=== PATIENT | female | born 1965 | race Caucasian/White ===

== ENCOUNTER 2017-03-10 09:07 | Observation (INO) | payer OTHER ==
[2017-03-10 10:04] LABS: #Basophils 0.1 thou/uL (0.0-0.2); #Eosinphils 0.2 thou/uL (0.0-0.7); #Lymphocytes 3.5 thou/uL (1.20-3.40); #Monocytes 0.8 thou/uL (0.11-0.59); #Neutrophils 5.8 thou/uL (1.40-6.50); %Basophils 0.7 % (0.0-1.0); %Eosinophils 1.8 % (0.0-10.0); %Lymphocytes 34.1 % (21.0-51.0); %Monocytes 7.8 % (0.0-10.0); Hematocrit 47.3 % (36.0-47.0); Mean Platelet Volume 6.3 fL (7.4-10.4); White Blood Cell (WBC) Count 10.4 thou/uL (4.8-10.8)
--- NOTE | 2017-03-10 10:22 | RAD ---
PORTABLE CHEST ONE VIEW: Date: 03-10-17 Time: 10:07 a.m. History: Abdominal pain. FINDINGS: The heart size is normal. The lungs are expanded without focal areas of consolidation, pneumothorax, or pleural effusions. IMPRESSION: No evidence of acute intracranial process. POS: OFF
[2017-03-10 10:30] LABS: Troponin I Less than 0.010 ng/mL (< 0.028)
[2017-03-10] MEDS ORDERED: Ondansetron HCl/PF 4 MG/2 ML Vial ONE (10:38)
[2017-03-10 11:23] LABS: ALT (SGPT) 24 U/L (8-55); AST (SGOT) 18 U/L (5-34); Alkaline Phosphatase 90 U/L (40-150); Anion Gap 17 mmol/L (10-20); BUN (Urea Nitrogen) 11 mg/dL (9.8-20.1); Bilirubin, Total 0.3 mg/dL (0.2-1.2); CK (CPK) 90 U/L (29-168); Calc. Creatinine Clearance 0 mL/min (70-130); Calcium 9.5 mg/dL (7.8-10.44); Carbon Dioxide 23 mmol/L (22-29); Chloride 100 mmol/L (98-107); Estimated GFR-MDRD 76; Protein, Total 7.8 g/dL (6.0-8.3)
[2017-03-10] MEDS ORDERED: Acetaminophen 500 MG TAB ONE (11:23)
[2017-03-10] MEDS ORDERED: Mag-Al 1200 mg/1200 mg/30 ML UDCUP ONE (11:48)
[2017-03-10] MEDS ORDERED: Lidocaine Viscous Sol 2% 15 ml UD Cup ONE (11:48)
--- NOTE | 2017-03-10 12:09 | CT ---
CT ABDOMEN AND PELVIS WITHOUT IV CONTRAST: INDICATIONS: Left lower quadrant abdominal pain and left-sided flank pain. COMPARISON: Prior CT evaluation dated 03/07/2010. FINDINGS: There is severe fatty infiltration of the liver. There is a calcified granuloma in the right lower lobe. The unopacified pancreas and spleen are normal appearing. The right adrenal gland normal appearing. The left adrenal adenoma, measuring 2.6 cm, is stable to the comparison. No renal or ureteral matt culus is evident. No hydronephrosis is evident. The bladder, rectum, and perirectal soft tissues are unremarkable. There is a mild amount of retained stool within the colon. There is a fat-containing umbilical hernia. The appendix is not definitely visualized and may be haley rgically absent. The uterus is not visualized and may be surgically absent. The left adnexa is not visualized and may be surgically absent. The right adnexa is likely present on axial image 63, dayday suring 2.4 cm. The rectum and perirectal soft tissues are unremarkable. There is scattered degener ative and osteoarthritic change. IMPRESSION: 1. No renal or ureteral calculus demonstrated. 2. No hydronephrosis is seen. 3. Stable left adrenal adenoma. 4. Fatty infiltration of the liver. 5. Nonvisualization of the appendix and uterus, most consistent with prior surgical removal. 6. Right adnexa appears within normal limits. Left adnexa is not well seen and may be surgically a bsent as well. POS: [facility]
[2017-03-10 12:15] LABS: Bilirubin Negative (Negative); Blood, Urine Negative (Negative); Glucose, Urine (Dipstick) Negative (Negative); Ketone, Urine Negative (Negative); Nitrite Negative (Negative); Protein, Urine (Dipstick) Negative (Neg-Trace); Urobilinogen 0.2 mg/dL (0.2-1.0)
[2017-03-10 13:14] LABS: Troponin I Less than 0.010 ng/mL (< 0.028)
[2017-03-10] MEDS ORDERED: Acetaminophen 325 MG TAB PO PRN (13:45)
[2017-03-10] MEDS ORDERED: Ondansetron HCl/PF 4 MG/2 ML Vial IVP PRN (13:45)
[2017-03-10] MEDS ORDERED: Ondansetron ODT 4 MG TAB PO PRN (13:45)
[2017-03-10 13:47] VITALS: BMI 54.5
[2017-03-10] MEDS ORDERED: Nitroglycerin 0.4 MG TAB (25 Tab Bottle) PO PRN (14:53)
[2017-03-10 17:03] LABS: Troponin I 0.013 ng/mL (< 0.028)
[2017-03-10] MEDS ORDERED: HumaLOG 300 UNITS/3 ML VIAL SC PRN (17:19)
[2017-03-10] MEDS ORDERED: Dextrose 50% Abboject 50 ML SYRINGE SLOW IVP PRN (17:19)
[2017-03-10] MEDS ORDERED: Dextrose 5% in Water 1,000 ML IV PRN (17:19)
[2017-03-10] MEDS: Hydroxychloroquine Sulfate 200 MG TAB PO SCH (20:40)
[2017-03-10] MEDS ORDERED: Insulin NPH/Reg Insulin Hm 300 UNITS/3 ML VIAL SC SCH (21:00)
[2017-03-10] MEDS ORDERED: Nicotine 21 MG PATCH TD SCH (21:00)
[2017-03-11 04:53] LABS: #Basophils 0.1 thou/uL (0.0-0.2); #Eosinphils 0.2 thou/uL (0.0-0.7); #Lymphocytes 3.5 thou/uL (1.20-3.40); #Monocytes 0.8 thou/uL (0.11-0.59); #Neutrophils 5.3 thou/uL (1.40-6.50); %Basophils 0.8 % (0.0-1.0); %Eosinophils 1.8 % (0.0-10.0); %Lymphocytes 35.7 % (21.0-51.0); %Monocytes 7.9 % (0.0-10.0); Hematocrit 42.9 % (36.0-47.0); Mean Platelet Volume 6.5 fL (7.4-10.4); Red Blood Cell (RBC) Count 4.52 mill/uL (4.20-5.40); White Blood Cell (WBC) Count 9.8 thou/uL (4.8-10.8)
[2017-03-11 05:19] LABS: ALT (SGPT) 22 U/L (8-55); AST (SGOT) 20 U/L (5-34); Alkaline Phosphatase 80 U/L (40-150); Anion Gap 12 mmol/L (10-20); BUN (Urea Nitrogen) 15 mg/dL (9.8-20.1); Bilirubin, Total 0.3 mg/dL (0.2-1.2); Calc. Creatinine Clearance 175 mL/min (70-130); Calcium 8.9 mg/dL (7.8-10.44); Carbon Dioxide 28 mmol/L (22-29); Chloride 102 mmol/L (98-107); Estimated GFR-MDRD 78; Globulin 3.8 g/dL (2.4-3.5); Lipase 57 U/L (8-78); Protein, Total 7.2 g/dL (6.0-8.3)
[2017-03-11] MEDS ORDERED: Levothyroxine Sodium 100 MCG TAB PO SCH (06:00)
--- NOTE | 2017-03-11 06:21 | HP-2 ---
DATE OF ADMISSION: 03/10/2017 ADMITTING ATTENDING: Dr. Dina Espitia. PRIMARY CARE PHYSICIAN: Dr. Dina Espitia. RESIDENT: Dr. Chriss Garcia. CHIEF COMPLAINT: Left upper quadrant abdominal pain. HISTORY OF PRESENT ILLNESS: A 51-year-old female with history of diabetes, hypertension, rheumatoid arthritis, Sjogren's syndrome, fibromyalgia, obstructive sleep apnea, hyperlipidemia, hypothyroidism, and depression presents with 1 day of worsening left upper quadrant pain. Pain had intermittently stabbing and aching quality in the left upper quadrant. Patient became diaphoretic when pain was at worst. The worst pain was 6/10, was not associated with shortness of breath. Patient was evaluated and overall was not well-appearing in the clinic and sent to the emergency department for evaluation of acute abdominal pain versus atypical presentation of acute coronary syndrome. Patient said pain radiated to her left shoulder, and she was positive for nausea. Negative for vomiting. Patient denied any diarrhea or stool changes. It felt like an episode of pancreatitis that patient had in the past. Patient had been started on methotrexate somewhat recently, but stopped it 2 weeks ago because she started to have more minor episodes of a similar pain as described above. Stopping the methotrexate did not help with that pain and today's event was the worst episode of her pain. In the ER, she was given a GI cocktail, which had no significant effect, Zofran, 1 liter of normal saline, Tylenol, and aspirin. PAST MEDICAL HISTORY: No previous myocardial infarction. She did have an angiogram 8 years ago that was normal. Other past medical problems include: 1. Fibromyalgia. 2. Rheumatoid arthritis. 3. Obstructive sleep apnea. 4. Asthma. 5. Sjogren's syndrome. 6. Hyperlipidemia. 7. Hypothyroidism. 8. Hypoparathyroidism. 9. Anxiety. 10. Diabetes mellitus. 11. Depression. 12. Essential hypertension. ALLERGIES: 1. IODINE. 2. MORPHINE. 3. DEPO-PROVERA. 4. CIPROFLOXICIN (mild). 5. CODEINE (mild). 6. PENICILLIN (mild). 7. SILVADENE (mild). 8. SULFA (mild). MEDICATIONS: 1. Albuterol inhaler. 2. Celexa 40 mg daily. 3. Synthroid 125 mcg 2 tabs daily. 4. Calcium 600 plus D3. 5. Fioricet 1 tab every 6 hours for headaches. 6. NovoLog inject 23 units subcutaneous at each meal. 7. Vitamin D3 of 2000 units. 8. Plaquenil 200 mg tabs. 9. Losartan 100 mg daily. 10. Levemir 45 units subcutaneous at bedtime. FAMILY HISTORY: Coronary artery disease, father; type 2 diabetes, mother; hypertension, father and mother; coronary heart disease, father; son, ADHD. PAST SURGICAL HISTORY: 1. Appendectomy, 1975. 2. Cholecystectomy, 1983. 3. Hysterectomy, 2009 with LSO. 4. Tubal ligation. 5. Coloanal anastomosis in infancy. 6. x3. 7. Right subtotal thyroidectomy in 2003. 8. 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 9. Radioactive iodine in 2013. SOCIAL HISTORY: Patient is a half pack a day smoker for a total of approximately 15-pack years. Patient denies alcohol and recreational drugs. 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 REVIEW OF SYSTEMS: General: Negative for fever and chills, weight, or appetite changes. Eyes: Negative for vision changes. ENT: Negative for nasal congestion or rhinorrhea. Respiratory: Negative for cough or shortness of breath. Cardiovascular: Negative for chest pain, but positive for shoulder pain. Negative for palpitations. GI: Positive for abdominal pain and nausea. Negative for vomiting, diarrhea, or GI bleeding. : Negative for incontinence or dysuria. Skin: Negative for rashes. Musculoskeletal: Negative for pain or tenderness. Neurologic: Negative for weakness or numbness. Psychiatric: Negative for anxiety or depression. PHYSICAL EXAMINATION: VITAL SIGNS: Blood pressure 146/95, pulse 85, respiratory rate 16, T-max 97.5, pulse ox 95% on room air. GENERAL: Patient is alert and oriented x4, in no acute distress, obese, and appropriately interactive. HEENT: Eyes, PERRLA, EOMI. Conjunctivae within normal limits. Nasal mucosa and oropharynx within normal limits. NECK: Supple without lymphadenopathy. CARDIOVASCULAR: Regular rate and rhythm without murmurs or gallops. Radial pulses 2+, pedal pulses 2+. RESPIRATORY: Normal effort without retractions. Clear to auscultation bilaterally. SKIN: Warm and dry without cyanosis or lesions. ABDOMEN: Soft, but tender to palpation in the left upper quadrant also the right upper quadrant. No rebound tenderness or guarding, also tender in the lower rib section of the left chest. No mass or distention. EXTREMITIES: No clubbing, cyanosis, or edema. MUSCULOSKELETAL: Tone and structure within normal limits. NEUROLOGICAL: No focal deficits. LABORATORY DATA: White blood cell count 10.4, hemoglobin 15.0, hematocrit 47, platelets 425. Sodium 135, potassium 4.5, chloride 100, bicarbonate 23, BUN 11 , creatinine 0.80, glucose 215. CK 90, CK-MB 1.8, troponin 0.010. Lipase 52. UA was negative. EKG showed normal sinus rhythm. Chest x-ray showed no acute disease. CT of the abdomen was done without contrast, because patient has an IODINE allergy, it showed that was negative for stone in the kidneys, ureter, or bladder. No hydronephrosis seen. Stable left adrenal adenoma. Fatty infiltration of the liver. Nonvisualization of the appendix and uterus, most consistent with prior surgical removal. Right adnexa appears within normal limits. Left adnexa was not well seen and may be surgically absent as well. The pancreas and spleen were normal appearing. Chest x-ray showed no acute disease. ASSESSMENT AND PLAN: 1. Atypical chest pain in the form of an anginal equivalent left upper quadrant pain. Symptoms that are concerning for acute coronary syndrome include left shoulder radiation and diaphoresis. Overall pain is not typical because not exertional, and not including shortness of breath also no substernal chest pain. But, with patient's risk factors, the plan is to place the patient in observation with serial troponins and plan for nuclear stress test this is negative. If ACS is ruled out, it is likely gastroesophageal reflux disease, but clinical concern for pancreatitis still exist to a small degree, so repeat lipase tomorrow. 2. Fibromyalgia. Continue patient's home medications. 3. Sjogren's disease. Continue patient's home Plaquenil. 4. Rheumatoid arthritis. Patient currently not getting methotrexate, will now continue in the hospital. 5. Hypertension. Continue patient's home medications. 6. Hypothyroidism. Continue patient's home 250 mcg of Synthroid. 7. Depression. Continue patient's citalopram. 8. Deep venous thrombosis prophylaxis. Eloy score of 1 for obesity, so we will provide patient with sequential compression devices. History and physical exam as well as management discussed with patient's primary care physician, Dr. Dina Espitia, who is in agreement. MTDD
[2017-03-11] MEDS: HumaLOG 300 UNITS/3 ML VIAL SC SCH ×2 (07:24→12:30)
[2017-03-11 07:58] VITALS: BP 132/66; TEMP 98.5
[2017-03-11] MEDS ORDERED: LEVEMIR SC SCH (09:00)
[2017-03-11] MEDS: Aspirin 325 MG TAB PO SCH ×2 (10:00→10:14)
[2017-03-11] MEDS: PRE FILLED SC SCH ×2 (10:00→10:14)
[2017-03-11] MEDS: Hydroxychloroquine Sulfate 200 MG TAB PO SCH ×2 (10:00→10:12)
[2017-03-11] MEDS: Losartan Potassium 25 MG TAB PO SCH ×2 (10:00→10:13)
[2017-03-11] MEDS: INSULIN DETEMIR SC SCH ×2 (10:00→10:14)
[2017-03-11] MEDS: Nicotine 21 MG PATCH TD SCH ×2 (10:01→10:15)
--- NOTE | 2017-03-11 10:41 | NM ---
CARDIAC SPECT: CLINICAL HISTORY: 51-year-old female with chest pain, hypertension, diabetes, dyslipidemia, and smoker. Family history of coronary artery disease. TECHNIQUE: A myocardial perfusion scan was performed using the single isotope two day protocol with 32 mCi tech netium-99m sestamibi injected intravenously for both stress and rest images. Pharmacologic stress wi Lexiscan was monitored and interpreted by Dr. Remy. FINDINGS: Homogeneous tracer distribution is seen in the myocardial segments on stress and rest images without fixed or reversible defects. GATED SPECT LVEF: 78%. WALL MOTION EXAM: Normal. IMPRESSION: Normal myocardial perfusion scan. POS: [facility]
[2017-03-11] MEDS ORDERED: Regadenoson 0.4 MG/5 ML SYRINGE ONE (12:00)
--- NOTE | 2017-03-11 12:39 | PDOC.FM ---
- Subjective Subjective: Patient states that her pain has improved compared to yesterday. No adverse events overnight. - Objective MAR Reviewed: Yes Vital Signs & Weight: Vital Signs (12 hours) Temp Pulse Resp BP BP Pulse Ox 03/11/17 11:05 98.5 F 79 16 132/66 95 03/11/17 07:30 98.5 F 71 16 03/11/17 07:08 98.5 F 71 16 132/66 96 03/11/17 03:56 97.8 F 93 18 135/65 94 L 03/11/17 01:03 95 Weight Weight 130.181 kg I&O: 03/10/17 03/11/17 03/12/17 06:59 06:59 06:59 Intake Total 750 Output Total 1900 200 Balance -1150 -200 Result Diagrams: 03/11/17 04:02 03/11/17 04:02 <Nayeli Batista - Last Filed: 03/11/17 12:38> - Objective Vital Signs & Weight: Vital Signs (12 hours) Temp Pulse Resp BP BP Pulse Ox 03/11/17 11:05 98.5 F 79 16 132/66 95 03/11/17 07:30 98.5 F 71 16 03/11/17 07:08 98.5 F 71 16 132/66 96 03/11/17 03:56 97.8 F 93 18 135/65 94 L Weight Weight 130.181 kg I&O: 03/10/17 03/11/17 03/12/17 06:59 06:59 06:59 Intake Total 750 Output Total 1900 200 Balance -1150 -200 Result Diagrams: 03/11/17 04:02 03/11/17 04:02 <Abdirashid Salter - Last Filed: 03/11/17 13:46> Phys Exam - Physical Examination Constitutional: NAD Respiratory: clear to auscultation bilateral Cardiovascular: RRR Gastrointestinal: soft, no distention diffuse tenderness to palpation worse around left upper quadrant Musculoskeletal: no edema Neurological: moves all 4 limbs Psychiatric: normal affect, A&O x 3 Skin: no rash <Nayeli Batista - Last Filed: 03/11/17 12:38> Dx/Plan (1) Abdominal pain Code(s): R10.9 - UNSPECIFIED ABDOMINAL PAIN Status: Acute Plan: Concern for atypical presentation of acute coronary syndrome on admission. Noncontrast CT scan showed no evidence of stones or hydronephrosis. Pt to have 2nd part of stress test today. If normal, will discharge. Will try Bentyl for pain. Will discharge is stress test is normal. (2) Hypothyroidism (acquired) Code(s): E03.9 - HYPOTHYROIDISM, UNSPECIFIED Status: Acute Plan: Continue home regimen. (3) Anxiety and depression Code(s): F41.8 - OTHER SPECIFIED ANXIETY DISORDERS Status: Acute Plan: Continue home regimen. (4) Diabetes type 2, controlled Code(s): E11.9 - TYPE 2 DIABETES MELLITUS WITHOUT COMPLICATIONS Status: Acute (5) Rheumatoid arthritis Code(s): M06.9 - RHEUMATOID ARTHRITIS, UNSPECIFIED Status: Acute Plan: Continue pt's home regimen (6) Hypertension Code(s): I10 - ESSENTIAL (PRIMARY) HYPERTENSION Status: Acute Plan: BPs have been stable. Continue home regimen (7) Sjogrens syndrome Code(s): M35.00 - SICCA SYNDROME, UNSPECIFIED Status: Acute Plan: Continue home regimen. <Nayeli Batista - Last Filed: 03/11/17 12:38> - Plan Plan: Seen and examined with Dr. Batista. I agree with the H&P and ramos portions repeated or added. I agree with their assessment and plan with the following addendum: ROS: Constitutional: no fever or chills CV: no chest pain or palpitations Resp: no shortness of breath or cough GI: no nausea or vomiting; no diarrhea or constipation. Otherwise pain as per HPI Await stress test. Otherwise risk factor management and likely outpatient follow up with rheumatology. <Abdirashid Salter - Last Filed: 03/11/17 13:46>
== END 2017-03-11 14:20 | disposition home or self-care (01) ==
LOC: ERS 09:07 → 2SW 12:26
PROVIDERS: ADMIT Family Medicine; ATTEND Family Medicine
DX: R07.89 Other chest pain (principal); M79.7 Fibromyalgia; M35.00 Sjogren syndrome, unspecified; M06.9 Rheumatoid arthritis, unspecified; I10 Essential (primary) hypertension; F32.9 Major depressive disorder, single episode, unspecified; G47.33 Obstructive sleep apnea (adult) (pediatric); J45.909 Unspecified asthma, uncomplicated; E20.9 Hypoparathyroidism, unspecified; F41.9 Anxiety disorder, unspecified; E11.9 Type 2 diabetes mellitus without complications; E89.0 Postprocedural hypothyroidism; F17.210 Nicotine dependence, cigarettes, uncomplicated; Z79.4 Long term (current) use of insulin; Z79.899 Other long term (current) drug therapy; Z88.5 Allergy status to narcotic agent; Z88.0 Allergy status to penicillin; Z88.2 Allergy status to sulfonamides; Z88.8 Allergy status to other drugs, medicaments and biological substances; Z88.1 Allergy status to other antibiotic agents; Z91.041 Radiographic dye allergy status; Z98.51 Tubal ligation status; Z90.49 Acquired absence of other specified parts of digestive tract; Z90.710 Acquired absence of both cervix and uterus; Z90.721 Acquired absence of ovaries, unilateral; Z90.79 Acquired absence of other genital organ(s); Z98.890 Other specified postprocedural states; Z82.49 Family history of ischemic heart disease and other diseases of the circulatory system; Z83.3 Family history of diabetes mellitus
CPT/HCPCS: 36415; 36416; 71010; 74176; 78452; 80053; 81003; 82553; 83690; 84484; 85025; 93005; 93017; 94760; 96361; 96374; A9500; G0378; J1815; J2405; J2785

== ENCOUNTER 2017-04-03 20:30 | Outpatient (CLI) | payer OTHER | END 2017-04-03 20:31 | disposition home or self-care (01) | LOC: SLEEPLAB 20:30 | PROVIDERS: ATTEND Family Medicine | DX: G47.33 Obstructive sleep apnea (adult) (pediatric) (principal); E11.9 Type 2 diabetes mellitus without complications; I10 Essential (primary) hypertension; E66.9 Obesity, unspecified; R06.83 Snoring | CPT/HCPCS: 95810 ==

== ENCOUNTER 2017-05-07 19:30 | Outpatient (CLI) | payer OTHER | END 2017-05-07 19:31 | disposition home or self-care (01) | LOC: SLEEPLAB 19:30 | PROVIDERS: ATTEND Family Medicine | DX: G47.33 Obstructive sleep apnea (adult) (pediatric) (principal); F32.9 Major depressive disorder, single episode, unspecified; R06.81 Apnea, not elsewhere classified; R53.83 Other fatigue; E66.9 Obesity, unspecified; R06.83 Snoring; I10 Essential (primary) hypertension; E11.9 Type 2 diabetes mellitus without complications | CPT/HCPCS: 95811 ==